=== PATIENT | female | born 1965 | race Caucasian/White ===

== ENCOUNTER 2016-11-10 09:24 | Day surgery (SDC) | payer OTHER ==
[2016-11-10] MEDS ORDERED: CELECOXIB 100 MG CAPSULE PO ONE (09:29)
[2016-11-10] MEDS ORDERED: ceFAZolin 2 GM/50 ML 50 ML IV ONE (09:29)
[2016-11-10] MEDS ORDERED: ACETAMINOPHEN 1,000 MG/100 ML 100 ML IV ONE (09:32)
[2016-11-10] MEDS ORDERED: LACTATED RINGERS 1,000 ML IV ONE ×3 (09:55→13:25)
[2016-11-10 12:07] LABS: HCG UR QUAL NEGATIVE
[2016-11-10] MEDS ORDERED: LIDOCAINE 1% 50 ML MDV SUBQ ONE ×2 (12:42)
[2016-11-10] MEDS ORDERED: BUPIVACAINE 0.25% PF 30 ML VIAL SUBQ ONE ×2 (12:42)
[2016-11-10] MEDS ORDERED: MIDAZOLAM 2 MG/2 ML VIAL IVP ONE (12:55)
[2016-11-10] MEDS ORDERED: LIDOCAINE-MPF 2% 5 ML VIAL IM ONE (12:55)
[2016-11-10] MEDS ORDERED: fentaNYL 100 MCG/2 ML VIAL IVP ONE (12:55)
[2016-11-10] MEDS ORDERED: METOCLOPRAMIDE 10 MG/2 ML VIAL IVP ONE (12:55)
[2016-11-10] MEDS ORDERED: ONDANSETRON 4 MG/2 ML VIAL IVP ONE (12:55)
[2016-11-10] MEDS ORDERED: PROPOFOL 200 MG/20 ML VIAL IVP ONE (12:55)
[2016-11-10 13:51] VITALS: BP 99/52
--- NOTE | 2016-11-14 07:39 | OPERATIVE REPORT ---
DATE OF SURGERY: 11/10/2016 00:00:00 ID#: [id number]. OPERATING SURGEON: Teddy Mckeon DO, [employer], [employer], [employer]ATE SURGEON: Lieutenant Commander Alexus Haney MD, Medical [facility], [facility] PREOPERATIVE DIAGNOSIS: Right trigger thumb stenosing tenosynovitis. OPERATIVE DIAGNOSIS: Right trigger thumb stenosing tenosynovitis. OPERATIVE PROCEDURE PERFORMED: Open right thumb A1 shaun release. ANESTHESIA PROVIDER: Kailey Botello MD ANESTHESIA TECHNIQUE: MAC with local at the incision site. CIRCULATING RN: Wolfgang Regan RN CONSTRUCTION MATERIALS TESTER: Ms. Joanna Morales. START TIME: 1241 hours. END TIME: 1304 hours. INJECTED SUBSTANCES INCLUDE: Marcaine 0.25% with 1% lidocaine plain, total of 14 mL injected. INTRAVENOUS FLUIDS: 1000 mL of Lactated Ringer's. PREOPERATIVE ANTIBIOTICS: Ancef 2 grams. ESTIMATED BLOOD LOSS: 1 mL. PREOPERATIVE PREP: ChloraPrep. COMPLICATIONS: None. SPECIMENS: None. Patient had bilateral lower extremity SCDs in place and functioning prior to induction of MAC. TOURNIQUET TIME: 23 minutes at 200 mmHg. INDICATION FOR SURGERY: This is a 51-year-old [id number] female with chronic right thumb tri ggering that responded well for a short period of time to corticosteroid injections x2, with persiste nt recurrence of triggering. She was counseled as far as the diagnosis and options for operative meli lisa nonoperative management, including the risks, benefits, alternatives, and expectations to both op erative and nonoperative management. She preferred surgery, gave her informed consent. On the day of surgery, she identified the operative site to be the right thumb, and it was initialed by the operative surgeon. Her hCG was negative. She was taken back to the operating room and placed in a supine position and underwent MAC for anesthesia with some IV sedation and local anesthetic at the incision site. Following this, the patient's right upper extremity underwent ChloraPrep and sandee dard sterile draping, followed by a surgical pause to confirm the proper patient, procedure, operativ e site, position, prophylaxis antibiotics, surgical initials, and surgical instrumentation in accorda nce with the Chadwick Protocol Procedure Verification. She had a tourniquet applied to the right up per brachium. The site of incision was identified and marked. The right upper extremity underwent Esmarch exsangui nation, and inflammation of the tourniquet to 200 mmHg, followed by injection of the incision site wi th local mixture of Marcaine plain with lidocaine plain, followed by a sharp incision with bipolar el ectrocautery for hemostasis and then blunt dissection while identifying and protecting the neurovascu lar bundle, the radial digital nerve vascular bundle. Further dissection revealed the A1 shaun. A Hawkins was placed deep to it, and release of the A1 shaun from proximal to distal was performed under direct loupe magnification. The oblique shaun was identified more distal and was intact. The thum b was taken through a full range of motion, and there was no triggering. The flexor pollicis longus was delivered from the wound and inspected as well. The wound was then copiously irrigated, and the incision was closed with 4-0 nylon in horizontal ventura ress fashion. The wound was then covered with Xeroform, sterile plain gauze, sterile Webril, and an AUBREY bandage. Tourniquet was then deflated. Patient had capillary refill of less than 2 seconds and warm pink hand and fingers. She tolerated the procedure well. She was taken to recovery in stable c ondition. Her was met in the surgical waiting room and advised of the intraoperative findings, procedur es performed, and postoperative instructions. JOB #: [id number] EXT JOB #:[id number]
== END 2016-11-10 09:25 | disposition home or self-care (01) ==
LOC: SDS 09:24
PROVIDERS: ATTEND Orthopaedic Surgery
PROC: 0LN70ZZ Release Right Hand Tendon, Open Approach (ICD-10-PCS; principal; 2016-11-10 11:15)
DX: M65.311 Trigger thumb, right thumb (principal); M65.9 Synovitis and tenosynovitis, unspecified
CPT/HCPCS: 26055; 81025; A9270; J0131; J0690; J7120